=== PATIENT | male | born 1995 | race Caucasian/White ===

== ENCOUNTER → 2021-02-16 | Outpatient (REF) ==
--- NOTE | 2021-02-16 14:42 | REP ---
INDICATION: SCIATICA. COMPARISON: 06/27/2019 TECHNIQUE: Three views FINDINGS: Three views of the lumbar spine show vertebral body height and alignment to be within normal limits. The pedicles are intact bilaterally. The disc spaces are symmetric and well maintained. IMPRESSION: Within normal limits <Electronically signed by Silas Powell > 02/16/21 1445
== END ==
LOC: M PLAIMG 12:53
PROVIDERS: ATTEND Internal Medicine
DX: M54.30 Sciatica, unspecified side (principal)

== ENCOUNTER → 2022-12-20 | Outpatient (REF) | LOC: M PLAIMG 15:12 | PROVIDERS: ATTEND Internal Medicine | DX: M54.50 Low back pain, unspecified (principal) ==